=== PATIENT | female | born 1965 | race Caucasian/White ===

== ENCOUNTER → 2017-11-19 | Outpatient (CLI) | payer OTHER | END | disposition home or self-care (01) | LOC: RAH 14:33 | PROVIDERS: ATTEND Obstetrics & Gynecology | DX: Z12.31 Encounter for screening mammogram for malignant neoplasm of breast (principal) | CPT/HCPCS: 77067 ==

== ENCOUNTER 2020-12-26 06:19 | Observation (INO) | payer OTHER ==
[2020-12-25 15:06] LABS: BASOPHILS % (AUTO) 0.7 % (0.0-5.0); EOSINOPHILS % (AUTO) 1.4 % (0.0-8.0); HEMATOCRIT 41.5 % (36-48); LYMPHOCYTES % (AUTO) 31.5 % (21.0-51.0); MEAN CORPUSCULAR HEMOGLOBIN 29.6 pg (27.0-33.0); MEAN CORPUSCULAR HGB CONC 33.3 g/dL (32.0-36.0); MEAN CORPUSCULAR VOLUME 89.1 fL (79-99); MONOCYTES % (AUTO) 6.1 % (3.0-13.0); NEUTROPHILS % (AUTO) 60.2 % (40.0-77.0); PLATELET COUNT (AUTO) 290 K/uL (130-400); RED BLOOD CELL COUNT(AUTO) 4.66 MIL/uL (4.00-5.50); RED CELL DISTRIBUTION WIDTH 11.9 % (11.0-15.5); WHITE BLOOD COUNT (AUTO) 8.6 K/uL (4.8-10.8)
[2020-12-25 16:12] VITALS: BP 110/61
[2020-12-26] VITALS (24 sets, daily range): BP systolic 106–127; BP diastolic 47–73
[~2020-12-26] VITALS: Ht 167.6 cm; Wt 79.8 kg
[~2020-12-26 06:19] MED LIST: HYDR-4377 PO; LACTATED RINGERS 1000ML 1,000 ML IV ONE; [UNRECOGNIZED DRUG - CODE] SQ; [UNRECOGNIZED DRUG - OTHER] IV
[2020-12-26] MEDS ORDERED: CEFAZOLIN SODIUM 1 GM VIAL ONE (06:29)
[2020-12-26] MEDS ORDERED: LIDOCAINE PF 100MG/5ML (2%) SYRINGE 5ML ONE (07:14)
[2020-12-26] MEDS ORDERED: ROCURONIUM 10MG/1ML SYR 10 MG/ML ML ONE (07:15)
[2020-12-26] MEDS ORDERED: FENTANYL CITRATE PF 50 MCG/1 ML 2ML VIAL ONE ×2 (07:15→08:49)
[2020-12-26] MEDS ORDERED: PROPOFOL 10 MG/ML 20ML VIAL IV ONE (07:15)
[2020-12-26] MEDS ORDERED: MIDAZOLAM HCL 1 MG/ML 2ML VIAL ONE (07:15)
[2020-12-26] MEDS ORDERED: GLYCOPYRROLATE 1 MG/5 ML SYRINGE ONE (08:21)
[2020-12-26] MEDS ORDERED: NEOSTIGMINE 5MG/5ML SYR IV ONE (08:22)
[2020-12-26] MEDS ORDERED: ONDANSETRON 4MG INJ ONE (08:22)
[2020-12-26] MEDS ORDERED: MEPERIDINE-PF 25 MG/ML SYG ONE (10:31)
[2020-12-26] MEDS ORDERED: BISACODYL 10 MG SUPP.RECT RC PRN (12:00)
[2020-12-26] MEDS ORDERED: ONDANSETRON 4MG INJ IVP PRN (12:00)
[2020-12-26] MEDS ORDERED: IBUPROFEN 600 MG TABLET PO PRN (12:00)
[2020-12-26] MEDS ORDERED: MEPERIDINE-PF 75 MG/ML SYG IM PRN (12:00)
[2020-12-26] MEDS ORDERED: PROMETHAZINE HCL 25 MG/ML 1ML AMPULE IM PRN ×2 (12:00)
[2020-12-26] MEDS: DEXTROSE 5 %-0.45 % NACL 1,000 ML IV PRN ×2 (13:50→23:06)
[2020-12-26] MEDS: APAP-CODEINE 300/30MG TAB PO PRN (13:50)
[2020-12-26] MEDS: SIMETHICONE 80 MG TAB.CHEW PO PRN (21:17)
[2020-12-26] MEDS: DOCUSATE SODIUM 100 MG CAP PO PRN (21:17)
[2020-12-27] MEDS: APAP-CODEINE 300/30MG TAB PO PRN ×2 (01:18→09:37)
[2020-12-27 03:00] VITALS: BP 105/57
[2020-12-27 05:03] LABS: HEMATOCRIT 35.9 % (36-48); MEAN CORPUSCULAR HEMOGLOBIN 29.7 pg (27.0-33.0); MEAN CORPUSCULAR HGB CONC 33.1 g/dL (32.0-36.0); MEAN CORPUSCULAR VOLUME 89.5 fL (79-99); RED BLOOD CELL COUNT(AUTO) 4.01 MIL/uL (4.00-5.50); RED CELL DISTRIBUTION WIDTH 12.2 % (11.0-15.5); WHITE BLOOD COUNT (AUTO) 13.8 K/uL (4.8-10.8)
[2020-12-27 07:18] VITALS: BP 114/58
[2020-12-27] MEDS: DOCUSATE SODIUM 100 MG CAP PO PRN (07:46)
[2020-12-27] MEDS: SIMETHICONE 80 MG TAB.CHEW PO PRN (07:46)
[2020-12-27 11:16] VITALS: BP 111/68
== END 2020-12-27 11:30 | disposition home or self-care (01) ==
LOC: DAH 06:19 → WSH 06:20
PROVIDERS: ADMIT Obstetrics & Gynecology; ATTEND Obstetrics & Gynecology
DX: D25.9 Leiomyoma of uterus, unspecified (principal); Z20.822 Contact with and (suspected) exposure to COVID-19; N83.209 Unspecified ovarian cyst, unspecified side; N73.6 Female pelvic peritoneal adhesions (postinfective); Z85.828 Personal history of other malignant neoplasm of skin
CPT/HCPCS: 36415 ×2; 58552; 85025; 85027; 86850; 86900; 86901; 87635; 96360; 96361 ×2; 96372; A4215 ×2; A4221; A4222; A4223; A4344; A4351; A4495; A4600; A4649 ×3; A4930; A6260; C1769 ×2; C9803; G0378 ×11; J0690; J2001; J2175; J2250; J2405; J2550; J2704; J2710; J3010 ×2; J3490; J7030 ×2; J7120 ×2

== ENCOUNTER → 2023-07-09 | Outpatient (CLI) | payer BC ==
[~2023-07-09] MED LIST changes: -LACTATED RINGERS 1000ML 1,000 ML IV ONE
== END | disposition home or self-care (01) ==
LOC: RAH 15:18
DX: Z12.31 Encounter for screening mammogram for malignant neoplasm of breast (principal)
CPT/HCPCS: 77067

== ENCOUNTER → 2025-04-13 | Outpatient (CLI) | payer OTHER | END | disposition home or self-care (01) | LOC: RAH 15:44 | DX: Z12.31 Encounter for screening mammogram for malignant neoplasm of breast (principal) | CPT/HCPCS: 77067 ==